=== PATIENT | male | born 1990 | race Two or more races ===

== ENCOUNTER 2018-10-04 02:44 | Inpatient (IN) | payer BC, OTHER ==
[2018-10-04] VITALS (17 sets, daily range): BP systolic 106–154; BP diastolic 54–92
[~2018-10-04] VITALS: Ht 172.7 cm; Wt 67.1 kg
[2018-10-04] MEDS ORDERED: NALOXONE PREFILLED SYRINGE 2 MG/2 ML SYRINGE ONE (02:47)
--- NOTE | 2018-10-04 02:50 | NUR ---
PT BIB [facility] WITH A C/O POSS OD. PT POSS ASPIRATED ON GIRL PATTERN SCRATCHER COOKIES. PT WAS LETHARGIC, NON RESPONSIVE TO PAINFUL STIMULI. DR. GONZALEZ IS AT THE BEDSIDE. RT AT THE BEDSIDE.
[2018-10-04] MEDS ORDERED: IV NS 0.9% 1,000 ML BAG IV ONE (03:00)
[2018-10-04] MEDS ORDERED: ROCURONIUM BROMIDE 100 MG/10 ML VIAL IV ONE (03:00)
[2018-10-04] MEDS ORDERED: NALOXONE HCL 0.4 MG/ML AMPUL IV ONE (03:00)
[2018-10-04] MEDS ORDERED: PROPOFOL 100 ML IV PRN ×3 (03:00→05:00)
--- NOTE | 2018-10-04 03:00 | NUR ---
CORINA MOTA [employer] AT THE BEDSIDE.
--- NOTE | 2018-10-04 03:00 | NUR ---
14 FR lux catheter inserted per sterile protocal. Immediate output 100ML of urine, color PALE, clarity CLEAR
--- NOTE | 2018-10-04 03:00 | NUR ---
VENT SETTINGS: AC14, TV400, FIO2 40%, PEEP 5
--- NOTE | 2018-10-04 03:05 | NUR ---
14 FR NG tube inserted through the RT nare. Correct positioning varified by aspiration, auscultation and x-ray. Pt is intubated.
[2018-10-04 03:09] LABS: BASOPHILS # (AUTO) 0.1 /CMM (0.0-0.2); BASOPHILS % (AUTO) 1.1 % (0.0-2.0); EOSINOPHILS % (AUTO) 0.9 % (0.0-6.0); HEMATOCRIT 42 % (39-51); HEMOGLOBIN 14.1 g/dL (13.5-17.5); LYMPHOCYTES # (AUTO) 2.2 /CMM (0.8-4.8); LYMPHOCYTES % (AUTO) 26.9 % (20.0-44.0); MEAN CORPUSCULAR HGB CONC 34 g/dl (31.0-36.0); MEAN CORPUSCULAR VOLUME 88 fL (80-96); MONOCYTES # (AUTO) 0.9 /CMM (0.1-1.30); NEUTROPHILS % (AUTO) 60.1 % (43.0-81.0); PLATELET COUNT (AUTO) 154 /CMM (150-450); RED BLOOD CELL COUNT(AUTO) 4.75 MIL/uL (4.5-6.0); WHITE BLOOD COUNT (AUTO) 8.4 K/uL (4.3-11.0)
--- NOTE | 2018-10-04 03:10 | NUR ---
PROPOFOL IV DRIP STARTED 1MCG/MIN
--- NOTE | 2018-10-04 03:12 | NUR ---
URINE COLLECTED AND SENT TO LAB
[2018-10-04 03:18] LABS: CARBON DIOXIDE 27 mmol/L (21-32); CHLORIDE 107 mmol/L (98-107); GLUCOSE 91 mg/dL (74-106); POTASSIUM 3.4 mmol/L (3.5-5.1); SODIUM SERUM 146 mmol/L (136-145); UREA NITROGEN, BLOOD 22 mg/dL (7-18)
--- NOTE | 2018-10-04 03:20 | NUR ---
CALLED SUP FOR ICU BED. ICU 254
--- NOTE | 2018-10-04 03:23 | NUR ---
PT IS GOING TO CT VIA [facility]. RT, MORGAN RN, [facility] EMT AND DATA CENTER TECHNICIAN TRANSPORTING PT TO CT.
[2018-10-04 03:27] LABS: ALANINE AMINOTRANSFERASE 72 U/L (12-78); ALBUMIN 3.6 g/dL (3.4-5.0); ALCOHOL, BLOOD < 3 mg/dL (0-0); ALKALINE PHOSPHATASE 85 U/L (46-116); ASPARTATE AMINOTRANSFERASE 43 U/L (15-37); BILIRUBIN,DIRECT 0.1 mg/dL (0.0-0.2); BILIRUBIN,TOTAL 0.3 mg/dL (0.2-1.0); TOTAL PROTEIN, SERUM 7.2 g/dL (6.4-8.2)
[2018-10-04 03:32] LABS: ACETAMINOPHEN 0 ug/ml (10-30); SALICYLATE 0.9 mg/dL (2.8-20.0)
[2018-10-04 03:33] LABS: APPEARANCE,URINE CLEAR (CLEAR); BILIRUBIN,URINE NEGATIVE (NEGATIVE); BLOOD, URINE 1+ Ery/uL (NEGATIVE); COLOR,URINE YELLOW (YELLOW); KETONES,URINE TRACE (NEGATIVE); LEUKOCYTE ESTERASE ,URINE NEGATIVE (NEGATIVE); NITRITE, URINE NEGATIVE (NEGATIVE); PROTEIN,URINE TRACE mg/dl (NEGATIVE); UGLUCOSE NEGATIVE (NEGATIVE)
--- NOTE | 2018-10-04 03:38 | NUR ---
PT RETURNED FROM CT.
--- NOTE | 2018-10-04 03:40 | NUR ---
VENT SETTINGS: AC14, TV 500, FIO2 40%, PEEP 5
--- NOTE | 2018-10-04 03:42 | NUR ---
SUCTIONED PT. APPROX 50 ML MUCUS, TRINH SECRETIONS NOTED.
--- NOTE | 2018-10-04 03:43 | NUR ---
CALLING REPORT TO ICU NURSE.
--- NOTE | 2018-10-04 03:46 | NUR ---
RECEIVED REPORT FROM YULY DE LOS SANTOS RN FOR CONTINUITY OF CARE. AWAITING PT ARRIVAL.
--- NOTE | 2018-10-04 03:46 | NUR ---
REPORT GIVEN TO TOMEKA GIVENS
--- NOTE | 2018-10-04 04:00 | NUR ---
ORAL SUCTIONING DONE ON PT.
[2018-10-04 04:02] LABS: BACTERIA,URINE Few /HPF (None Seen); SPERM,URINE Few /HPF (None Seen); SQUAMOUS EPITHELIAL CELL,UR Rare /HPF (None Seen)
--- NOTE | 2018-10-04 04:07 | NUR ---
PROPOFOL IS AT 10MCG/MIN.
--- NOTE | 2018-10-04 04:15 | NUR ---
PROPOFOL DECREASED TO 6MCG/MIN, 0.41ML/HER
--- NOTE | 2018-10-04 04:31 | NUR ---
PROPOFOL INCREASED TO 10MCG/MIN. SUCTIONING DONE AT THE BEDSIDE.
--- NOTE | 2018-10-04 04:45 | NUR ---
RECEIVED PT IN NO ACUTE DISTRESS IN BED. PT IS SEDATED AND INTUBATED. PT ETT IS CLEAN DRY AND INTACT. PT ET TUBE IS 5.5/24 WITH VENT SETTING @ AC 14, TV 400, FIO2 40%, PEEP 5. PT TOLERATING VENT SETTING WELL WITH O2 SAT @ 99%. PT PLACED ON TELE WITH SR ON THE MONITOR. PT HAS F/C THAT IS CLEAN DRY INTACT AND PATENT WITH YELLOW CLEAR URINE DRAINING. PT HAS RIGHT AC 18G THAT IS CLEAN DRY INTACT AND PATENT WITH PROPOFOL @ 10MCG. PT HAS LAC 18G THAT IS CLEAN DRY INTACT AND PATENT WITH SALINE LOCK. BED IN LOW LOCK POSITION WITH RAILS UP X 2. CALL LIGHT WITHIN REACH AND ALL SAFETY MEASURES ENSURED AND CARRIED OUT. WILL CONTINUE TO MONITOR PT.
--- NOTE | 2018-10-04 04:45 | NUR ---
PT WAS TRANSPORTED TO ICU 254 VIA GURNEY WITH RT, [facility] EMT AND MYSELF.
--- NOTE | 2018-10-04 04:50 | NUR ---
PT BECAME INCREASINGLY AGITATED AND MORE AGGRESSIVE HITTING AND KICKING. PROPOFOL INCREASED TO SEDATE PATIENT.
[2018-10-04] MEDS ORDERED: IV NS 0.9% 1,000 ML IV PRN (04:54)
[2018-10-04] MEDS ORDERED: PROPOFOL 200 MG/20 ML VIAL IV PRN (05:00)
[2018-10-04] MEDS ORDERED: ONDANSETRON HCL/PF 4 MG/2 ML VIAL IVP PRN (05:00)
[2018-10-04] MEDS ORDERED: ACETAMINOPHEN 650 MG/SUPP.RECT RC PRN (05:00)
--- NOTE | 2018-10-04 05:31 | NUR ---
RT Pt orally intubated w/ 7.5ETT@24cm at the lip. Pt on AC [facility] vent settings. Addendum: 10/04/18 at 0532 by OLIVIA LAMAR RT Amended: Links added.
[2018-10-04] MEDS: POTASSIUM CL. PREMIX PERIPHER. 50 ML IV SCH ×2 (05:49→06:38)
--- NOTE | 2018-10-04 06:10 | NUR ---
PT SELF EXTUBATED AND RT NOTIFIED. PROPOFOL STOPPED AND REMOVED FROM PATIENT. MULTIPLE STAFF IN ROOM TO HOLD PATIENT DOWN AND ASSESS RESPIRATORY STATUS. PT O2 SAT @ 97-98% ON ROOM AIR POST EXTUBATION. PT CONTINUES TO THRASH AND KICK AND TRY TO REMOVE THE RESTRAINTS. WILL CONTACT DASH REED NP HUMAN RESOURCES MGR FOR ATIVAN ORDER TO HELP CALM PT.
--- NOTE | 2018-10-04 06:15 | NUR ---
RECEIVED ORDERS FROM DASH REED NP PACKAGER AND STRAPPER TO GIVE ATIVAN 1MG Q6H PRN FOR AGITATION. READBACK ORDERS PERFORMED AND CARRIED OUT.
[2018-10-04] MEDS ORDERED: LORAZEPAM INJ 2 MG/ML VIAL ONE (06:25)
[2018-10-04] MEDS ORDERED: LORAZEPAM INJ 2 MG/ML VIAL IV PRN (06:30)
[2018-10-04 07:16] LABS: ABG BASE EXCESS -1.2 mmol/L; ABG OXYGEN SATURATION 96.9 % (92.0-98.5); ABG PCO2 42.3 mmHg (35.0-45.0); ABG PH 7.373 (7.350-7.450); ABG PO2 104.4 mmHg (75.0-100.0); COHb 0.4 % (0.5-1.5); MetHb 0.5 % (0.0-1.5); SITE, ABG Left Radial; VENT MODE, BG ROOM AIR
--- NOTE | 2018-10-04 07:40 | NUR ---
PT CURRENTLY SLEEPING IN BED IN NO ACUTE DISTRESS. PT NOT THRASHING OR AGITATED AT THIS TIME. PT CONTINUES ON 2 POINT RESTRAINTS AND GOOD PULSES ON ALL FOUR EXTREMITIES. WILL ENDORSE CARE TO AM RN FOR CONTINUITY OF CARE.
[2018-10-04] MEDS ORDERED: ENOXAPARIN SODIUM 40 MG/0.4 ML DISP.SYRIN SQ SCH (09:00)
[2018-10-04] MEDS ORDERED: PANTOPRAZOLE 40 MG VIAL IV SCH (09:00)
--- NOTE | 2018-10-04 09:00 | NUR ---
PT AWAKE COOPERATIVE SLIGHTLY CONFUSED. ABLE TO PROVIDE SOME HISTORY. ABLE TO GIVE MOTHER'S PHONE NUMBER. JEANMARIE, MOTHER [phone] CONTACTED. PT WAS ABLE TO SPEAK TO HER.
[2018-10-04] MEDS ORDERED: ROCURONIUM BROMIDE 50 MG/5 ML IV ONE (09:45)
[2018-10-04] MEDS ORDERED: FEE EMEERGENCY 1 MIN EA MC ONE (09:45)
--- NOTE | 2018-10-04 10:00 | NUR ---
REEMA D/C, ABLE TO SWALLOW, DR CHRISTY HERE TO SEE PT. OK TO ORDER REG DIET.
--- NOTE | 2018-10-04 11:00 | NUR ---
PT CLEARED BY DR MEDRANO. Addendum: 10/04/18 at 1504 by MAYA MOFFETT RN UPON DR MEDRANO'S REQUEST CONFIRMED WITH MOTHER THAT FAMILY MAKING ARRANGEMENTS FOR REHAB IN [place]. DISABILITY BENEFITS SPECIALIST NAME MISAEL STAPLETON
--- NOTE | 2018-10-04 14:03 | NUR ---
Social service consult requested by BETINA Hung for drug overdose. Pt. is a 27 year old male who was admitted to [facility] for overdose and respiratory failure. The pt. was given 4 mg of Narcan intranasally without any change in mental condition, and once IV line was established the patient was also given an additional 2 mg of Narcan in the field. SW met with pt. bedside. Pt. is alert and oriented x 4. Pt. was sitting on his bed, when SW met with him. Pt. is cooperative and pleasant with SW during the assessment. Pt. states he lives with two roommates at [address] [place] [address], however, pt. is going to move out of there in the next two days. Pt's mother Peggy Burgess is his emergency contact . Pt. states his mom i s aware of his hospitalization. Pt. states he overdosed on GHB. Pt. denies it being an intentional overdose. Pt. states he has been using GHB on and off for the last few weeks. Pt. seems to be insight on his drug use and states, he need to "change his life for the better." Pt. denies alcohol and cigarette use. Pt. says he has a diagnosis of Depression and Anxiety. Pt. was attending talk therapy but stopped once his insurance stopped paying. Pt. denies suicidal and homicidal ideations and visual/auditory hallucinations at this time. Pt. has attended many drug treatment programs in the past. Pt. last attended [facility] treatment program, both residential and detox. 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 Pt. states, he is ready to make a change and get into a treatment program. However, pt. is planning to leave AMA to get his money and phone that he left at [employer] located at [facility] in [place]. SW gave pt. the following drug treatment resources: [facility]:Contact Amrit Doshi [facility] Substance Abuse Self-helpline ([facility]) Contact number . Call the hotline and the ferryboat operator will screen and link individual to an appropriate program. Must have Medi-tung or be Med-tung eligible. [facility] [id number] [place] [address] [facility] [address] [place] [address] [facility] ([place] based) [address] [facility]. [place] [id number] (Six months program and need to work for 8 hrs per day while in treatment) [facility] (No insurance required) [address] [place] [address] SW provided pt. with some clothing and shoes. No other social service needs are requested at this time. SW is available, if needed.
--- NOTE | 2018-10-04 14:54 | NUR ---
PT LEFT AMA. DR NOTIFIED. CLOTHING AND SHOES PROVIDED BY SENIOR DATABASE ADMINISTRATOR.
== END 2018-10-04 14:45 | disposition left against medical advice (07) | DRG 917 ==
LOC: ER 02:46 → ICU 03:33
PROVIDERS: ADMIT Nurse Practitioner Acute Care; ATTEND Internal Medicine
PROC: 0BH17EZ Insertion of Endotracheal Airway into Trachea, Via Natural or Artificial Opening (ICD-10-PCS; principal; 2018-10-04)
PROC: 5A1935Z Respiratory Ventilation, Less than 24 Consecutive Hours (ICD-10-PCS; principal; 2018-10-04)
DX: T40.5X1A Poisoning by cocaine, accidental (unintentional), initial encounter (principal); J96.00 Acute respiratory failure, unspecified whether with hypoxia or hypercapnia; G92 Toxic encephalopathy; E87.0 Hyperosmolality and hypernatremia; F19.10 Other psychoactive substance abuse, uncomplicated; E86.1 Hypovolemia; E87.6 Hypokalemia; J32.0 Chronic maxillary sinusitis; F32.9 Major depressive disorder, single episode, unspecified; T43.621A Poisoning by amphetamines, accidental (unintentional), initial encounter; Y92.009 Unspecified place in unspecified non-institutional (private) residence as the place of occurrence of the external cause
CPT/HCPCS: 36415; 36600; 70450-TC; 70486-TC; 71045-TC; 72125-TC; 80048-TC; 80076-TC; 80305; 81000-TC; 82803-TC; 82962-TC; 84484-TC; 85025-TC; 85730-TC; 87081-TC; 94002-TC; 94760-TC; 99082-TC; C9113; G0378; G0480; J1650; J2060; J2310; J3480; J3490; J7030